=== PATIENT | female | born 1990 | race Caucasian/White ===

== ENCOUNTER 2024-12-01 18:13 | Emergency (ER) | payer OTHER ==
[~2024-12-01] VITALS: Ht 157.5 cm; Wt 59.0 kg
[2024-12-01 18:36] LABS: BASOPHILS # (AUTO) 0.1 K/UL (0.0-0.2); BASOPHILS % (AUTO) 1.1 % (0.0-2.0); EOSINOPHILS # (AUTO) 0.4 K/uL (0.0-0.7); EOSINOPHILS % (AUTO) 4.9 % (0.0-7.0); HEMATOCRIT 37.1 % (31.2-41.9); HEMOGLOBIN 12.3 g/dL (10.9-14.3); LYMPHOCYTES # (AUTO) 2.1 K/uL (0.8-4.8); LYMPHOCYTES % (AUTO) 23.4 % (20.5-51.5); MEAN CORPUSCULAR HEMOGLOBIN 30.3 uug (24.7-32.8); MEAN CORPUSCULAR HGB CONC 33 g/dL (32.3-35.6); MEAN CORPUSCULAR VOLUME 91.7 fL (75.5-95.3); MONOCYTES # (AUTO) 0.6 K/uL (0.1-1.30); MONOCYTES % (AUTO) 6.7 % (0.0-11.0); NEUTROPHILS # (AUTO) 5.6 K/uL (1.8-8.9); NEUTROPHILS % (AUTO) 63.9 % (38.5-71.5); PLATELET COUNT (AUTO) 206 K/uL (179-408); RED BLOOD CELL COUNT(AUTO) 4.05 MIL/uL (3.63-4.92); RED CELL DISTRIBUTION WIDTH 13.8 % (12.3-17.7); WHITE BLOOD COUNT (AUTO) 8.8 K/uL (3.8-11.8)
[2024-12-01 18:37] LABS: DIFFERENTIAL COMMENT 1
[2024-12-01 18:42] LABS: CALCIUM 9.1 mg/dL (8.5-10.1); CARBON DIOXIDE 25 mmol/L (21-32); CHLORIDE 102 mmol/L (98-107); CREATININE 0.7 mg/dL (0.6-1.3); GLUCOSE 95 mg/dL (74-106); POTASSIUM 3.4 mmol/L (3.5-5.1); SODIUM SERUM 139 mmol/L (136-145); UREA NITROGEN, BLOOD 6 mg/dL (7-18)
[2024-12-01 19:49] LABS: *BILIRUBIN,URIN NEGATIVE (NEGATIVE); *BLOOD, URINE NEGATIVE (NEGATIVE); *CLARITY,URINE CLEAR (CLEAR); *COLOR,URINE YELLOW (YELLOW); *KETONES,URINE NEGATIVE (NEGATIVE); *PROTEIN,URINE NEGATIVE (NEGATIVE); *UROBILINOGEN,URINE 0.2 E.U./dl (NORMAL); LEUKOCYTE ESTERASE ,URINE NEGATIVE (NEGATIVE); NITRITE, URINE NEGATIVE (NEGATIVE); PH,URINE 7.5 (5.0-8.0); UGLUCOSE NEGATIVE (NEGATIVE)
[2024-12-01 19:58] LABS: *AMPHETAMINE, URINE NEGATIVE (NEGATIVE); *BARBITURATE, URINE NEGATIVE (NEGATIVE); *BENZODIAZEPINE, URINE NEGATIVE (NEGATIVE); *CANNABINOID, URINE NEGATIVE (NEGATIVE); *COCCAINE, URINE NEGATIVE (NEGATIVE); *OPIATE, URINE NEGATIVE (NEGATIVE); *PHENCYCLIDINE SCREEN,URINE NEGATIVE (NEGATIVE); FENTANYL, URINE NEGATIVE (NEGATIVE)
[2024-12-01 20:05] LABS: *URINE HCG, QUAL NEGATIVE (NEGATIVE)
[2024-12-01] MEDS ORDERED: POTASSIUM CHLORIDE 20 MEQ TAB.PRT.SR ONE (20:17)
[2024-12-01] MEDS: POTASSIUM CHLORIDE 20 MEQ TAB.PRT.SR PO ONE (20:18)
[2024-12-01] MEDS ORDERED: IOHEXOL 350 100 ML INFUS..BTL ONE (20:30)
[2024-12-01] MEDS ORDERED: SWABABLE VALVE TRANSFER SET EA MC ONE (20:30)
[2024-12-01] MEDS ORDERED: IV NORMAL SALINE 250 ML IV ONE (20:30)
[2024-12-01 21:32] VITALS: BP 119/69; TEMP 98; O2SAT 99
== END 2024-12-01 21:30 | disposition home or self-care (01) ==
LOC: ER 18:13
DX: R07.9 Chest pain, unspecified (principal); R20.0 Anesthesia of skin; R53.1 Weakness; Z79.899 Other long term (current) drug therapy
CPT/HCPCS: 99285; 70496; 71045; 80048; 81003; 84703; 85025; 85379; 84484; 36415; 70498; 71250; 93005; 80307; Q9967; A4606; A4663

== ENCOUNTER 2024-12-25 13:35 | Emergency (ER) | payer OTHER ==
[~2024-12-25] VITALS: Ht 160 cm; Wt 59.9 kg
[2024-12-25 14:06] LABS: *BILIRUBIN,URIN NEGATIVE (NEGATIVE); *BLOOD, URINE NEGATIVE (NEGATIVE); *CLARITY,URINE CLEAR (CLEAR); *COLOR,URINE YELLOW (YELLOW); *KETONES,URINE NEGATIVE (NEGATIVE); *PROTEIN,URINE NEGATIVE (NEGATIVE); *UROBILINOGEN,URINE 0.2 E.U./dl (NORMAL); LEUKOCYTE ESTERASE ,URINE TRACE (NEGATIVE); NITRITE, URINE NEGATIVE (NEGATIVE); UGLUCOSE NEGATIVE (NEGATIVE)
[2024-12-25 14:19] LABS: PLATELET COUNT (AUTO) 190 K/uL (179-408); RED BLOOD CELL COUNT(AUTO) 3.82 MIL/uL (3.63-4.92); RED CELL DISTRIBUTION WIDTH 14.0 % (12.3-17.7); WHITE BLOOD COUNT (AUTO) 8.3 K/uL (3.8-11.8)
[2024-12-25 14:24] LABS: SQUAMOUS EPITHELIAL CELL,UR MANY /HPF (NONE SEEN)
[2024-12-25 14:30] LABS: CREATININE 0.4 mg/dL (0.6-1.3); SODIUM SERUM 134 mmol/L (136-145); UREA NITROGEN, BLOOD 4 mg/dL (7-18)
[2024-12-25 14:36] LABS: ASPARTATE AMINOTRANSFERASE 9 U/L (15-37); TOTAL PROTEIN, SERUM 7.3 g/dL (6.4-8.2)
[2024-12-25 15:09] LABS: PREGNANCY TEST SERUM QUAN 3510 miul/L (0-6)
[2024-12-25 15:39] VITALS: BP 121/79; TEMP 98.3; O2SAT 99
== END 2024-12-25 15:39 | disposition home or self-care (01) ==
LOC: ER 13:35
DX: O26.891 Other specified pregnancy related conditions, first trimester (principal); R10.2 Pelvic and perineal pain; M54.9 Dorsalgia, unspecified; R10.31 Right lower quadrant pain; R10.32 Left lower quadrant pain; Z91.012 Allergy to eggs; Z3A.01 Less than 8 weeks gestation of pregnancy
CPT/HCPCS: 36415; 76856; 85025; A4606; A4663

== ENCOUNTER 2025-02-05 16:15 | Emergency (ER) | payer OTHER ==
[~2025-02-05] VITALS: Ht 160 cm; Wt 64.0 kg
[2025-02-05] MEDS ORDERED: RABIES VACCINE (PCEC)/PF 2.5 UNIT ML IM ONE (17:00)
[2025-02-05] MEDS ORDERED: RABIES IMMUNE GLOBULIN/PF 300 UNIT/ML 2 ML VIAL IM ONE (17:00)
[2025-02-05] MEDS ORDERED: AMOXICILLIN-CLAVUL 875-125MG TABLET ONE (17:18)
[2025-02-05] MEDS: AMOXICILLIN-CLAVUL 875-125MG TABLET PO ONE (17:29)
[2025-02-05 17:53] VITALS: BP 135/70
[2025-02-05] MEDS ORDERED: AMOX-430 PO (17:57)
[2025-02-05] MEDS ORDERED: SULF1TAB48 PO (17:57)
[2025-02-05 19:01] VITALS: BP 133/68; O2SAT 98
== END 2025-02-05 19:01 | disposition home or self-care (01) ==
LOC: ER 16:15
DX: O9A.211 Injury, poisoning and certain other consequences of external causes complicating pregnancy, first trimester (principal); S61.451A Open bite of right hand, initial encounter; Z3A.11 11 weeks gestation of pregnancy; W54.0XXA Bitten by dog, initial encounter; Y93.89 Activity, other specified; Y92.89 Other specified places as the place of occurrence of the external cause; Y99.8 Other external cause status
CPT/HCPCS: 73120; A4606; A4663